=== PATIENT | female | born 1940 | race African-American/Black ===

== ENCOUNTER 2018-12-20 16:07 | Inpatient (IN) ==
[2018-12-20] MEDS ORDERED: SODIUM CHLORIDE 0.9% 500 ML IV STA (16:19)
[2018-12-20 16:56] LABS: Apearance,Urine CLEAR (Clear); Bacteria,Urine Occasional /HPF (Few); Bilirubin,Urine Negative (Negative); Blood, Urine Negative (Negative); Glucose,Urine (UA) Negative (Negative); Ketones,Urine Negative (Negative); Nitrite,Urine Negative (Negative); Protein,Urine Negative; RBC,Urine 10 /HPF (0-4); Urine Color Straw (Yellow); Urine Specific Gravity 1.009 (1.001-1.035); Urine Urobilinogen < 2.0 EU/DL (0.2-1.0); WBC,Urine <1 /HPF (0-6)
[2018-12-20 17:23] LABS: Barbiturates Screen,Urine Negative (Negative); Benzodiazepines Screen,Urine Negative (Negative); Cannabinoid Screen,Urine Negative (Negative); Opiate Screen,Urine Negative (Negative); Phencyclidine Screen,Urine Negative (Negative)
[2018-12-20 18:12] LABS: Basophils % 0.4 % (0.0-0.8); Eosinophils # 0.2 10*3/uL (0.0-0.87); Eosinophils % 2.4 % (0.00-10.9); Hematocrit 36.9 VOL% (35.7-47.0); Hemoglobin 11.1 GM/DL (12.0-16.0); Immature Granulocytes % 0.3 %; Immature Granulocytes Absolute 0.02 #; Lymphocytes # 1.2 10*3/uL (1.4-4.0); Lymphocytes % 16.5 % (21.3-54.2); Mean Corpuscular HGB Conc 30.1 GM/DL (32-36); Mean Corpuscular Hemoglobin 22 PG (27-34); Mean Corpuscular Volume 71.7 FL (87-102); Monocytes # 0.7 10*3/uL (0.11-0.8); Monocytes % 9.5 % (1.7-12.7); Neutrophils # 4.9 10*3/uL (1.4-7.4); Neutrophils % 70.9 % (38.7-73.9); Platelet Count 144 T/CUMM (130-400); Red Blood Count 5.15 MC/CUMM (3.8-5.5); Red Cell Distribution Width 15.6 % (9.3-17.3)
[2018-12-20 18:20] LABS: Partial Thromboplastin Time 35.3 SECS (0-40)
[2018-12-20 18:28] LABS: Alanine Aminotransferase 33 U/L (13-56); Albumin 3.7 G/DL (3.4-5.0); Alkaline Phosphatase 111 U/L (45-117); Aspartate Amino Transferase 36 U/L (0-37); Blood Urea Nitrogen 20 MG/DL (7-18); Calcium 8.9 MG/DL (8.5-10.1); Glucose 99 MG/DL (74-106); Osmolality,Calculated 283.3 MOS/KG (273-304); PT Patient Result 21.6 SECS; Sodium 141 MMOL/L (136-145); Total Protein 8.2 G/DL (6.4-8.3)
[2018-12-20] MEDS ORDERED: LABETALOL 20 MG/4 ML SYRINGE IV PRN (20:10)
[2018-12-20] MEDS ORDERED: ONDANSETRON 4 MG/2 ML VIAL IV PRN (20:10)
[2018-12-20 20:56] LABS: Risk Ratio 1.59; VLDL CHOLESTEROL 14.8 MG/DL
[2018-12-20] MEDS ORDERED: ENOXAPARIN 40 MG/0.4 ML SYRINGE SUBCUT SCH (21:00)
[2018-12-20] MEDS: SODIUM CHLORIDE 0.9% 1,000 ML IV SCH (23:39)
[2018-12-21 02:37] LABS: Basophils % 0.4 % (0.0-0.8); Eosinophils # 0.1 10*3/uL (0.0-0.87); Eosinophils % 1.1 % (0.00-10.9); Hemoglobin 10.1 GM/DL (12.0-16.0); Immature Granulocytes % 0.3 %; Immature Granulocytes Absolute 0.02 #; Lymphocytes # 1.2 10*3/uL (1.4-4.0); Lymphocytes % 17.5 % (21.3-54.2); Mean Corpuscular HGB Conc 29.3 GM/DL (32-36); Mean Corpuscular Hemoglobin 21 PG (27-34); Monocytes # 0.8 10*3/uL (0.11-0.8); Monocytes % 10.7 % (1.7-12.7); Platelet Count 133 T/CUMM (130-400); Red Blood Count 4.79 MC/CUMM (3.8-5.5); Red Cell Distribution Width 15.5 % (9.3-17.3); White Blood Count 7.1 T/CUMM (4-12)
[2018-12-21 02:39] LABS: Hematocrit 34.5 VOL% (35.7-47.0)
[2018-12-21 03:00] LABS: Calcium 8.2 MG/DL (8.5-10.1); Osmolality,Calculated 285.1 MOS/KG (273-304); Potassium 4.1 MMOL/L (3.5-5.1); Thyroid Stimulating Hormone 1.35 uIU/ml (0.358-3.74)
[2018-12-21 03:54] LABS: Apearance,Urine Slightly Hazy (Clear); Bacteria,Urine Few /HPF (Few); Bilirubin,Urine Negative (Negative); Blood, Urine Large mg/dL (Negative); Glucose,Urine (UA) Negative (Negative); Ketones,Urine Negative (Negative); Nitrite,Urine Negative (Negative); Protein,Urine 100 MG/DL; RBC,Urine 607 /HPF (0-4); Urine Color Yellow (Yellow); Urine Specific Gravity 1.018 (1.001-1.035); Urine Urobilinogen < 2.0 EU/DL (0.2-1.0); WBC,Urine 86 /HPF (0-6)
[2018-12-21] MEDS: PANTOPRAZOLE 40 MG VIAL IV SCH (09:50)
[2018-12-21] MEDS: SODIUM CHLORIDE 0.9% 1,000 ML IV SCH (10:40)
[2018-12-21] MEDS ORDERED: ACETAMINOPHEN 325 MG TABLET PO PRN (19:33)
[2018-12-21] MEDS ORDERED: metOLazone 5 MG TABLET PO PRN (19:33)
[2018-12-21] MEDS ORDERED: WARFARIN 5 MG TABLET PO SCH (20:00)
[2018-12-21] MEDS: FUROSEMIDE 80 MG TABLET PO SCH (21:10)
[2018-12-21] MEDS: levETIRAcetam 500 MG TABLET PO SCH (21:12)
[2018-12-21] MEDS: METOPROLOL TARTRATE 25 MG TABLET PO SCH (21:13)
[2018-12-21] MEDS: TRAVOPROST 0.004% OPH SOLN 2.5 ML BOTTLE BOTH EYES SCH (21:18)
[2018-12-22 06:08] LABS: INR 1.8
[2018-12-22] MEDS: MONTELUKAST 10 MG TABLET PO SCH (12:08)
[2018-12-22] MEDS: CARVEDILOL 6.25 MG TABLET PO SCH ×2 (12:08→17:43)
[2018-12-22] MEDS: MULTIVITAMIN (CENTRUM) TABLET PO SCH (12:08)
[2018-12-22] MEDS: LOSARTAN 25 MG TABLET PO SCH (12:08)
[2018-12-22] MEDS: CALCIUM (CARBONATE)/VITAMIN D 600 MG-400 UNIT TABLET PO SCH (12:08)
[2018-12-22] MEDS: FERROUS SULFATE 325 MG TABLET PO SCH (12:09)
[2018-12-22] MEDS: METOPROLOL TARTRATE 25 MG TABLET PO SCH ×2 (12:09→20:42)
[2018-12-22] MEDS: MAGNESIUM OXIDE 400 MG TABLET PO SCH (12:09)
[2018-12-22] MEDS: FUROSEMIDE 80 MG TABLET PO SCH ×2 (12:09→20:42)
[2018-12-22] MEDS: levETIRAcetam 500 MG TABLET PO SCH ×2 (12:09→20:42)
[2018-12-22] MEDS: DEXAMETHASONE 4 MG TABLET PO SCH (17:43)
[2018-12-22] MEDS ORDERED: WARFARIN 5 MG TABLET PO SCH (18:00)
[2018-12-22] MEDS: PANTOPRAZOLE 40 MG VIAL IV SCH (18:05)
[2018-12-22] MEDS: TRAVOPROST 0.004% OPH SOLN 2.5 ML BOTTLE BOTH EYES SCH (20:49)
[2018-12-23] MEDS ORDERED: PANTOPRAZOLE 40 MG TABLET PO SCH (09:00)
[2018-12-23] MEDS ORDERED: ASPIRIN EC 81 MG TABLET PO SCH (09:00)
[2018-12-23] MEDS: CALCIUM (CARBONATE)/VITAMIN D 600 MG-400 UNIT TABLET PO SCH (09:15)
[2018-12-23] MEDS: MAGNESIUM OXIDE 400 MG TABLET PO SCH (09:16)
[2018-12-23] MEDS: FUROSEMIDE 80 MG TABLET PO SCH (09:16)
[2018-12-23] MEDS: MONTELUKAST 10 MG TABLET PO SCH (09:16)
[2018-12-23] MEDS: MULTIVITAMIN (CENTRUM) TABLET PO SCH (09:17)
[2018-12-23] MEDS: DEXAMETHASONE 4 MG TABLET PO SCH (09:17)
[2018-12-23] MEDS: levETIRAcetam 500 MG TABLET PO SCH (09:17)
[2018-12-23] MEDS: FERROUS SULFATE 325 MG TABLET PO SCH (09:18)
[2018-12-23] MEDS: CARVEDILOL 6.25 MG TABLET PO SCH (09:18)
[2018-12-23] MEDS: METOPROLOL TARTRATE 25 MG TABLET PO SCH (09:18)
[2018-12-23] MEDS: LOSARTAN 25 MG TABLET PO SCH (09:18)
[2018-12-23 12:19] VITALS: BP 104/54
== END 2018-12-23 14:21 | DRG 64 ==
LOC: EDUNIT# → EDBD → N.ED 16:07 → SUATTDRO 19:45 → N.EDINP 19:45 → N.TELEN 21:07
PROVIDERS: ADMIT Phlebology; ATTEND Internal Medicine Geriatric Medicine